=== PATIENT | male | born 1995 | race American Indian/Alaskan Native ===

== ENCOUNTER 2020-10-17 22:00 | Emergency (ER) | payer SELFPAY ==
[2020-10-17] MEDS ORDERED: ONDANSETRON 4 MG ODT TAB PO ONE (22:19)
[2020-10-17] MEDS ORDERED: MECLIZINE 25 MG TAB PO ONE (22:19)
--- NOTE | 2020-10-17 22:23 | Emergency Department Report ---
ED General Adult HPI - General Chief complaint: Dizziness Stated complaint: HEADACHE;DIZZINESS Time Seen by Provider: 10/17/20 22:18 Source: patient Mode of arrival: Ambulatory Limitations: No Limitations - History of Present Illness Initial comments: 24-year-old male patient presents to the emergency department with complaints of dizziness and nausea starting 2 days ago. Patient states his symptoms began after he took "a bunch" of Tylenol and Advil "because he was having trouble sleeping." He estimates ingesting approximately 10 of each medication. After taking the medications, patient reportedly began vomiting. He has vomited a couple of times per day since the ingestion. His dizziness has been intermittent, lasting a few minutes at a time when present. States the dizziness is exacerbated with movement and relieved with sitting still. No history of similar symptoms. No preceding fall, trauma, or injury. States he does not abuse alcohol or illicit drugs. No known sick contacts. Denies fever, chills, headache, vision changes, syncope, seizure, chest pain, shortness of breath, palpitations, abdominal pain, paresthesias, numbness. Denies other complaints at this time. - Related Data Allergies Allergy/AdvReac Type Severity Reaction Status Date / Time No Known Allergies Allergy Verified 10/17/20 22:06 ED Review of Systems ROS: Stated complaint: HEADACHE;DIZZINESS Other details as noted in HPI Other: GENERAL: Negative for fever, chills, weight change, anorexia, fatigue. ENT: Negative for ear pain, difficulty hearing, sore throat, nasal congestion, epistaxis. CARDIOVASCULAR: Negative for chest pain, palpitations, lower extremity swelling. PULMONARY: Negative for cough, dyspnea, wheezing, orthopnea, cyanosis. GASTROINTESTINAL: Positive for nausea. MUSCULOSKELETAL: Negative for joint pain, joint swelling, myalgias, back pain, neck pain. NEUROLOGICAL: Positive for dizziness. INTEGUMENTARY: Negative for erythema, rash, diaphoresis, laceration, ecchymosis. HEMATOLOGICAL: Negative for hemoptysis, hematemesis, hematochezia, hematuria. PSYCHIATRIC: Negative for hallucinations, suicidal ideation, homicidal ideation, anxiety, depression. ED Past Medical Hx - Past Medical History Previous Medical History?: No - Surgical History Past Surgical History?: No - Social History Smoking Status: Current Every Day Smoker Substance Use Type: Alcohol ED Physical Exam - General Limitations: No Limitations - Other Other exam information: General: Awake and alert. No acute distress. Head: Atraumatic, normocephalic. Eyes: EOMI. Pupils are equal and round, reactive to light, no nystagmus. Normal sclera and conjunctiva. ENT: Oral mucosa is moist. Normal pharyngeal exam. Neck: Supple. No lymphadenopathy. Pulmonary: No respiratory distress. Clear to auscultation bilaterally. Cardiac: Regular rate and rhythm. Pulses are palpable and equal bilaterally. No lower extremity cyanosis or edema. Skin: Warm and dry. No rashes. Abdomen: Soft, non-tender, non-protuberant. No guarding, rigidity, or rebound. Bowel sounds are normal. No organomegaly or masses noted. Back: Normal alignment. No CVA tenderness. Extremities: Symmetrical. Full range of motion intact. Neurological: Alert and oriented, appropriately interactive, no focal deficits. Psych: Cooperative. Appropriate mood and affect. Speech is evenly metered. Thoughts are logically construed. ED Course Vital Signs 10/17/20 22:11 Temperature 98.1 F Pulse Rate 78 Respiratory 16 Rate Blood Pressure 130/89 [Right] O2 Sat by Pulse 99 Oximetry ED Medical Decision Making - Lab Data Result diagrams: 10/17/20 22:25 10/17/20 22:25 - Medical Decision Making Differential diagnosis including but not limited to: cardiac arrhythmia, dehydration, electrolyte abnormality, hypoglycemia, anemia, peripheral vertigo, central vertigo, toxic ingestion Patient eloped from the emergency department prior to completion of diagnostic work-up. Multiple attempts by ED staff to locate patient were unsuccessful. Critical care attestation.: If time is entered above; I have spent that time in minutes in the direct care of this critically ill patient, excluding procedure time. ED Disposition Clinical Impression: Eloped from emergency department Disposition: Z-[id number] ELOPED Is pt being admited?: No Condition: Undetermined
[2020-10-17 22:24] VITALS: BP 130/89
[2020-10-17 22:37] LABS: Basophils # (Auto) 0.1 K/mm3 (0.0-0.1); Eosinophils # (Auto) 0.1 K/mm3 (0.0-0.4); Eosinophils % (Auto) 0.9 % (0.0-4.3); Hematocrit 44.8 % (35.5-45.6); Hemoglobin 14.6 gm/dl (11.8-15.2); Lymphocytes # (Auto) 1.8 K/mm3 (1.2-5.4); Lymphocytes % (Auto) 20.8 % (13.4-35.0); Mean Corpuscular HGB Conc 33 % (32-34); Mean Corpuscular Volume 86 fl (84-94); Monocytes # (Auto) 0.9 K/mm3 (0.0-0.8); Monocytes % (Auto) 10.5 % (0.0-7.3); Platelet Count 207 K/mm3 (140-440); Red Blood Count 5.19 M/mm3 (3.65-5.03); Red Cell Distribution Width 13.7 % (13.2-15.2)
[2020-10-17 23:00] LABS: Alanine Aminotransferase 28 units/L (7-56); Albumin 4.6 g/dL (3.9-5); BUN/Creatinine Ratio 7; Blood Urea Nitrogen 7 mg/dL (9-20); Calcium 9.8 mg/dL (8.4-10.2); Hemolysis Index 1
== END 2020-10-17 22:41 | disposition left against medical advice (07) ==
LOC: ED 22:00
DX: R42 Dizziness and giddiness (principal); R11.0 Nausea; F17.200 Nicotine dependence, unspecified, uncomplicated
CPT/HCPCS: 36415; 80053; 80320; 83735; 85025; 99282; G0480